=== PATIENT | female | born 1935 | race Caucasian/White ===

== ENCOUNTER 2022-01-02 09:05 | Emergency (ER) | payer MEDICARE, MEDICAID, SELFPAY ==
--- NOTE | ~2022-01-02 | CT_ITS ---
EXAMINATION: CT BRAIN AND CT CERVICAL SPINE WITHOUT CONTRAST. CLINICAL INFORMATION: Status post fall with head strike. COMPARISON: None TECHNIQUE: 5 mm thin axial and reformatted 2 mm thin sagittal and coronal images of brain were obtained. Subsequently axial 3 mm thin and reformatted 2 mm thin sagittal and coronal images of cervical spine were obtained. [facility] 939 FINDINGS: Brain: There is no acute intra-axial, extra-axial bleed, masses or midline shift. There is no acute infarction evolution. There is diffuse periventricular hypodensity in both cerebral hemispheres without mass effect. The lateral ventricles are symmetrical but enlarged. The cortical sulci are enlarged as well. Bone windows reveal no calvarial abnormality. There is a right frontal scalp soft tissue swelling. Cervical spine: There is maintained cervical lordosis. There is mild loss of C3-C4, C4-C5 and C6-C7 disc heights. Rest the disc heights are normal. There is grade 1 anterolisthesis C5 over C6. Rest the vertebral alignment is normal. The craniovertebral junction and the C1-C2 alignment is normal. No acute fracture or dislocation. There is mild bilateral C3-C4, C4-C5, moderate to significant C5-C6 facet joint arthropathy and hypertrophy. The prevertebral and paravertebral soft tissues are normal. The thyroid lobes and salivary glands are symmetric and normal. The lung apices are clear. CT/CT cervical spine wo con IMPRESSION: No acute intracranial process seen. Age-related cerebral volume loss with chronic small vessel ischemic changes. Chronic right sphenoid sinus inflammatory changes. There is no acute fracture or dislocation cervical spine. There is grade 1 anterolisthesis C5 over C6 with degenerative disc changes C3-C4, C4-C5 and C6-C7 disc levels with ventral and posterior spondylosis.
--- NOTE | ~2022-01-02 | CT_ITS ---
EXAMINATION: CT BRAIN AND CT CERVICAL SPINE WITHOUT CONTRAST. CLINICAL INFORMATION: Status post fall with head strike. COMPARISON: None TECHNIQUE: 5 mm thin axial and reformatted 2 mm thin sagittal and coronal images of brain were obtained. Subsequently axial 3 mm thin and reformatted 2 mm thin sagittal and coronal images of cervical spine were obtained. [facility] 939 FINDINGS: Brain: There is no acute intra-axial, extra-axial bleed, masses or midline shift. There is no acute infarction evolution. There is diffuse periventricular hypodensity in both cerebral hemispheres without mass effect. The lateral ventricles are symmetrical but enlarged. The cortical sulci are enlarged as well. Bone windows reveal no calvarial abnormality. There is a right frontal scalp soft tissue swelling. Cervical spine: There is maintained cervical lordosis. There is mild loss of C3-C4, C4-C5 and C6-C7 disc heights. Rest the disc heights are normal. There is grade 1 anterolisthesis C5 over C6. Rest the vertebral alignment is normal. The craniovertebral junction and the C1-C2 alignment is normal. No acute fracture or dislocation. There is mild bilateral C3-C4, C4-C5, moderate to significant C5-C6 facet joint arthropathy and hypertrophy. The prevertebral and paravertebral soft tissues are normal. The thyroid lobes and salivary glands are symmetric and normal. The lung apices are clear. CT/CT head/brain wo con IMPRESSION: No acute intracranial process seen. Age-related cerebral volume loss with chronic small vessel ischemic changes. Chronic right sphenoid sinus inflammatory changes. There is no acute fracture or dislocation cervical spine. There is grade 1 anterolisthesis C5 over C6 with degenerative disc changes C3-C4, C4-C5 and C6-C7 disc levels with ventral and posterior spondylosis.
[2022-01-02 09:12] VITALS: BP 134/68; PULSE 68; O2SAT 96
[2022-01-02 09:39] VITALS: BP 134/68; PULSE 68; RESP 18; TEMP 36.8; O2SAT 96; BMI 35.2
--- NOTE | 2022-01-02 10:02 | PC.NURSE ---
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 combative towards staff.
--- NOTE | 2022-01-02 10:24 | ED.FALL ---
HPI - Fall General Chief Complaint: Fall Stated Complaint: FALL,FOREHEAD LAC FROM SNF,PER EMS Time Seen by Provider: 01/02/22 10:23 Source: patient and EMS Mode of arrival: EMS Limitations: altered mental status History of Present Illness HPI Narrative: 86 yo female with history of dementia, disoriented and fully dependent on all ADLs at baseline, HTN, CKD, osteoarthritis who presents to the ER via EMS from SNF for evaluation after she fell out of a chair and struck her forehead on the ground. She is not on anticoagulation. She did not lose consciousness. EMS steri-striped a wound on her right forehead with some ongoing oozing. She is confused and intermittent combative with care which is her baseline per report. MD complaint: fall Onset (ago): unknown Fall witnessed: yes, by living facility staff Place fall occurred: retirement/SNF Loss of consciousness: none Prolonged down time: no Location of injury: head and face Related Data Home Medications Medication Instructions Recorded Confirmed acetaminophen 325 mg tablet 975 mg PO BID 01/02/22 01/02/22 amlodipine 5 mg tablet 1 tab PO DAILY 01/02/22 01/02/22 celecoxib 100 mg capsule 1 cap PO DAILY 01/02/22 01/02/22 divalproex 125 mg capsule,delayed 2 cap PO BID 01/02/22 01/02/22 release sprinkle escitalopram oxalate 20 mg tablet 1 tab PO DAILY 01/02/22 01/02/22 lorazepam 0.5 mg tablet 1 tab PO Q6H PRN 01/02/22 01/02/22 trazodone 50 mg tablet 50 mg PO BID 01/02/22 01/02/22 Allergies Allergy/AdvReac Type Severity Reaction Status Date / Time Unable to Assess Allergy Unverified 01/02/22 10:24 Review of Systems Review of Systems: Yes Unobtainable due to mental condition and Unobtainable due to mental status PMFSH Social History Social History Advance Directives: Yes Advance Directives Information Provided: No Advance Directives on File: No Physical Exam Vital Signs: Vital Signs: Last Vital Signs Temp 98.2 F 01/02/22 09:39 Pulse 68 01/02/22 09:39 Resp 16 01/02/22 14:17 BP 150/67 H 01/02/22 14:17 Pulse Ox 96 01/02/22 09:39 BMI result Body Mass Index 35.2 Appearance: Alert, elderly female sitting in the stretcher with a blood-soaked bandage on her right side of her forehead. No distress. head: right side of forehead with a 1cm irregularly shaped indentation with oozing, surrounding ecchymosis of the forehead extending to the right temporal area. No periorbital swelling or tenderness. Eyes: Pupils equal, round and reactive to light. ENT: Pharynx normal. Neck: Normal inspection. Neck supple. CVS: Normal heart rate and rhythm. Pulses normal. Respiratory: No respiratory distress. Breath sounds normal. Abdomen: Soft and nontender. +BS x4 Skin: Skin warm and dry. Normal skin color. Normal skin turgor. No rashes. Extremities: Atraumatic x4, pelvis is stable. nontender hips, shoulders, knees and elbows bilaterally. No lower extremity edema. Neuro: Awake and alert, incoherent speech. Says yes to most things does not follow commands Course Course Course Narrative: 86-year-old female with history of dementia presents to the ER for evaluation after a fall out of a chair this morning at her detention facility. She has a laceration on the right side of her forehead that was Steri-Strips by EMS. There is still small amount of bleeding. There is ecchymosis extending down to the right parietal area. Will get CT scan for further evaluation of traumatic injury. Will also get baseline labs. Reevaluation(s) Reevaluation #1: CT head without acute traumatic injury. Wound was cleaned and we closed with Dermabond & Steri-Strips with good affect. Her labs are unremarkable. At this time she is stable for discharge back to her detention facility. Procedures Laceration Laceration 1: Site: scalp Side (If applicable): right Size (cm): 1 Description: irregular Depth: simple, single layer Pre-repair: wound explored, irrigated extensively and deep structures intact Skin layer closed with: other (dermabond and skin glue ) MDM - Fall Medical Records Attestation: I reviewed the patient's medical records. Lab Data Attestation: I reviewed the patient's lab results. Result diagrams: 01/02/22 13:43 01/02/22 13:43 Labs: Lab Results 01/02/22 01/02/22 Range/Units 13:43 13:43 WBC 9.1 (4.8-10.8) X10*3/uL RBC 3.74 L (4.20-5.50) X10*6/uL Hgb 12.1 (12.0-16.0) g/dl Hct 37.9 (37.0-47.0) % MCV 101.3 H (80.0-98.0) fL MCH 32.4 (27.0-33.0) pg MCHC 31.9 (31.0-35.0) g/dl RDW 12.0 (11.0-16.0) % Plt Count 238 (160-400) X10*3/uL MPV 10.2 (9.4-12.3) fL Immature Gran % (Auto) 0.3 (0.0-0.4) % Neut % (Auto) 42.7 L (45-73) % Lymph % (Auto) 47.6 H (20-40) % [place] % (Auto) 7.8 (2-11) % Eos % (Auto) 1.2 (0-4) % Baso % (Auto) 0.4 (0-2) % Lymph # (Auto) 4.3 (1.2-4.9) X10*3/uL [place] # (Auto) 0.7 (0.1-1.2) X10*3/uL Eos # (Auto) 0.1 (0.0-0.4) X10*3/uL Baso # (Auto) 0.0 (0.0-0.2) X10*3/uL Abs Immat Gran (auto) 0.03 (0.00-0.03) X10*3/uL Absolute Neuts (auto) 3.9 (2.0-8.3) x10*3/uL Absolute Nucleated RBC 0.000 (0.0-0.012) X10*3/uL Nucleated RBC % (auto) 0.0 (0.0-0.2) /100WBC Sodium 139 (135-145) mmol/L Potassium 4.7 (3.3-5.1) mmol/L Chloride 104 (96-108) mmol/L Carbon Dioxide 28 (22-29) mmol/L Anion Gap 12 (12-20) BUN 26 H (9-16) mg/dL Creatinine 1.02 (0.5-1.4) mg/dL Estim Creat Clear Calc 37.4 Estimated GFR 51 Random Glucose 94 (60-115) mg/dL Calcium 9.3 (8.4-10.2) mg/dL Total Bilirubin 0.2 (0.0-1.0) mg/dL Direct Bilirubin < 0.2 (0.0-0.5) mg/dL AST 14 (5-31) U/L ALT 10 (0-31) U/L Alkaline Phosphatase 60 (39-117) U/L Total Protein 6.5 (6.5-8.0) g/dL Albumin 3.5 (3.5-5.0) g/dL ECG Data Attestation: I personally reviewed and interpreted this ECG as follows: ECG interpretation date: 01/02/22 ECG interpretation time: 15:01 Prior ECG tracings: not available for review Interpretation: Sinus bradycardia, heart rate 52 beats per minute, left axis deviation, normal QTC, no ST segment elevations or depressions. Discharge Plan Discharge Clinical Impression: Hematoma of frontal scalp Patient Disposition: Xfer SNF Transfer Details: [facility] Instructions: Scalp Contusion in Adults (ED) Additional Instructions: Your CT scan did not any traumatic injuries. Skin glue and steri-strips were used to close the wound on your forehead - do not peel off, it will fall off on it's own, usually within 1 week. Follow up with your doctor as needed. If you develop new or worsening symptoms call 911 or come back to the ER for further evaluation. Prescriptions: No Action acetaminophen 325 mg Tablet 975 mg PO BID 0RF trazodone 50 mg tablet 50 mg PO BID 0RF amlodipine 5 mg tablet 1 tab PO DAILY 0RF lorazepam 0.5 mg tablet 1 tab PO Q6H PRN (Reason: anxiety) 0RF celecoxib 100 mg capsule 1 cap PO DAILY 0RF divalproex 125 mg capsule, delayed rel sprinkle 2 cap PO BID 0RF escitalopram oxalate 20 mg tablet 1 tab PO DAILY 0RF
--- NOTE | 2022-01-02 10:45 | ECG_ITS ---
Test Reason : FALL Blood Pressure : / mmHG Vent. Rate : 052 BPM Atrial Rate : 052 BPM P-R Int : 166 ms QRS Dur : 106 ms QT Int : 390 ms P-R-T Axes : 034 -41 -07 degrees QTc Int : 362 ms Sinus bradycardia Left axis deviation Minimal voltage criteria for LVH, may be normal variant ( Freedom product ) Abnormal ECG No previous ECGs available Referred By: Betty Wong Electronically Signed By:MAKENZIE MCCRACKEN MD
--- NOTE | 2022-01-02 11:03 | PHA.MEDREC ---
Pharmacy Consult ? Medication Reconciliation Pharmacy has completed the medication reconciliation. Patient came from SNF with a medication list. Kelly Camargo, NaylaD
[2022-01-02 13:48] LABS: MANUAL DIFF FLAG NO
[2022-01-02 13:58] LABS: Basophils Percent Auto 0.4 % (0-2); Eosinophils Absolute Auto 0.1 X10*3/uL (0.0-0.4); Eosinophils Percent Auto 1.2 % (0-4); Hematocrit 37.9 % (37.0-47.0); Hemoglobin 12.1 g/dl (12.0-16.0); Imm Gran Abs Auto 0.03 X10*3/uL (0.00-0.03); Imm Gran Pct Auto 0.3 % (0.0-0.4); Lymphocytes Absolute Auto 4.3 X10*3/uL (1.2-4.9); Lymphocytes Percent Auto 47.6 % (20-40); Mean Corpuscular HGB Conc 31.9 g/dl (31.0-35.0); Mean Corpuscular Hemoglobin 32.4 pg (27.0-33.0); Mean Corpuscular Volume 101.3 fL (80.0-98.0); Mean Platelet Volume 10.2 fL (9.4-12.3); Monocytes Absolute Auto 0.7 X10*3/uL (0.1-1.2); Monocytes Percent Auto 7.8 % (2-11); Neutrophils Absolute Auto 3.9 x10*3/uL (2.0-8.3); Neutrophils Percent Auto 42.7 % (45-73); Platelet Count 238 X10*3/uL (160-400); Red Blood Count 3.74 X10*6/uL (4.20-5.50); White Blood Count 9.1 X10*3/uL (4.8-10.8)
[2022-01-02 14:07] LABS: Alanine Aminotransferase 10 U/L (0-31); Albumin Level 3.5 g/dL (3.5-5.0); Alkaline Phosphatase 60 U/L (39-117); Anion Gap 12 (12-20); Aspartate Amino Transferase 14 U/L (5-31); Bilirubin Direct < 0.2 mg/dL (0.0-0.5); Bilirubin Total 0.2 mg/dL (0.0-1.0); Blood Urea Nitrogen 26 mg/dL (9-16); Calcium 9.3 mg/dL (8.4-10.2); Carbon Dioxide 28 mmol/L (22-29); Chloride 104 mmol/L (96-108); Creatinine Clr Calc Pharmacy 37.4; Estimated Glomerular Filt Rate 51; Glucose Random 94 mg/dL (60-115); Potassium 4.7 mmol/L (3.3-5.1); Sodium 139 mmol/L (135-145); Total Protein 6.5 g/dL (6.5-8.0)
[2022-01-02 14:17] VITALS: BP 150/67; RESP 16
--- NOTE | 2022-01-02 14:24 | PC.NURSE ---
pt with dementia , which is baseline. unable to fully assess pain
--- NOTE | 2022-01-02 15:33 | PC.NURSE ---
pt a&o to self, confused at baseline, hx dementia. pt resting comfortably, singing in bed. pending transfer back to SNF, ambulance booked.
== END 2022-01-02 20:33 | disposition skilled nursing facility (03) ==
PROVIDERS: Physician Assistant; Emergency Provider Emergency Medicine; PCP Internal Medicine
DX: S00.03XA Contusion of scalp, initial encounter (principal); S01.81XA Laceration without foreign body of other part of head, initial encounter; R94.31 Abnormal electrocardiogram [ECG] [EKG]; F03.90 Unspecified dementia, unspecified severity, without behavioral disturbance, psychotic disturbance, mood disturbance, and anxiety; I10 Essential (primary) hypertension; Z79.899 Other long term (current) drug therapy; W07.XXXA Fall from chair, initial encounter; Y93.9 Activity, unspecified; Y92.129 Unspecified place in nursing home as the place of occurrence of the external cause; Y99.9 Unspecified external cause status
CPT/HCPCS: 12001; 36415; 70450; 72125; 80048; 80076; 85025; 93005; 99284